=== PATIENT | female | born 1960 | race African-American/Black ===

== ENCOUNTER 2018-05-01 16:58 | Emergency (ER) | payer OTHER ==
[~2018-05-01] VITALS: Ht 167.6 cm; Wt 124.0 kg
[2018-05-01 17:08] VITALS: BP 127/67
== END 2018-05-01 21:09 | disposition left against medical advice (07) ==
LOC: ER 18:14
DX: Z53.21 Procedure and treatment not carried out due to patient leaving prior to being seen by health care provider (principal)